=== PATIENT | female | born 1965 | race Caucasian/White ===

== ENCOUNTER 2019-06-27 14:38 | Emergency (ER) | payer BC ==
[2019-06-27] MEDS ORDERED: Ketorolac 30 MG/ML SDV IVPUSH ONE (15:43)
[2019-06-27] MEDS ORDERED: Metoclopramide 10 MG/2 ML SDV IVPUSH ONE (15:43)
[2019-06-27] MEDS ORDERED: Sodium Chloride 0.9% 10 ML Syringe FLUSH PRN (15:43)
[2019-06-27] MEDS ORDERED: diphenhydrAMINE 50 MG/ML SDV IVPUSH ONE (15:43)
[2019-06-27] MEDS ORDERED: Sodium Chloride 0.9% 1,000 ML IV SCH (15:45)
[2019-06-27] MEDS ORDERED: Ondansetron 4 MG/2 ML SDV IVPUSH ONE (15:52)
--- NOTE | 2019-06-27 16:16 | EDM.PDOC ---
ED HPI GENERAL MEDICAL PROBLEM - General Chief Complaint: Headache Stated Complaint: SEVERE MIGRAINE,NAUSEA Time Seen by Provider: 06/27/19 15:42 Source of Information: Reports: Patient, RN Notes Reviewed History Limitations: Reports: No Limitations - History of Present Illness INITIAL COMMENTS - FREE TEXT/NARRATIVE: Patient is a 54-year-old female who presents to the ER for complaints of a headache. Patient notes she has a history of headaches, she states that she has pain in the front of her head, behind her eyes and her temples. This started around 3 hours prior to arrival to the ED. Patient notes that they're from [place] and have been traveling long hours. [place] Drive is [place] [address] She states that she was sleeping in the car so she felt as if her head was bobbing due to tiredness, she thinks this might be related to a sore, stiff neck in nature as well. She states that she then developed a migraine and vomiting. She notes that she's vomited roughly 4 times already. She normally takes an Excedrin for the pain and this helps, but she just wanted to make sure that this was a headache or migraine in nature and not something worse. Patient denies any fevers or chills that she has been having. She is neurologically intact and does not have any sort of neurological deficits noted on initial history. 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: Musculoskeletal History: Reports: None Neurological History: Reports: Migraines Psychiatric History: Reports: None Endocrine/Metabolic History: Reports: Hypothyroidism, Obesity/BMI 30+ Hematologic History: Reports: None Immunologic History: Reports: None Oncologic (Cancer) History: Reports: None Dermatologic History: Reports: None - Infectious Disease History Infectious Disease History: Reports: None - Past Surgical History Head Surgeries/Procedures: Reports: None HEENT Surgical History: Reports: Adenoidectomy, Tonsillectomy Social & Family History - Tobacco Use Smoking Status *Q: Never Smoker - Caffeine Use Caffeine Use: Reports: None - Recreational Drug Use Recreational Drug Use: No ED ROS GENERAL - Review of Systems Review Of Systems: See Below Constitutional: Denies: Fever, Chills HEENT: Reports: No Symptoms Respiratory: Denies: Shortness of Breath Cardiovascular: Denies: Chest Pain Endocrine: Reports: No Symptoms GI/Abdominal: Reports: Nausea, Vomiting. Denies: Constipation, Diarrhea : Reports: No Symptoms Musculoskeletal: Reports: Neck Pain Skin: Reports: No Symptoms Neurological: Reports: Headache (SEE HPI) Psychiatric: Reports: No Symptoms Hematologic/Lymphatic: Reports: No Symptoms - Physical Exam Exam: See Below Exam Limited By: No Limitations General Appearance: Alert, WD/WN, No Apparent Distress Eye Exam: Bilateral Eye: EOMI, Normal Inspection, PERRL Ears: Normal External Exam Throat/Mouth: Normal Inspection, Normal Lips, Normal Teeth, Normal Gums, Normal Oropharynx, Normal Voice, No Airway Compromise Head Exam: Atraumatic, Normocephalic Neck: Normal Inspection, Supple, Non-Tender, Full Range of Motion Respiratory/Chest: No Respiratory Distress, Lungs Clear, Normal Breath Sounds, No Accessory Muscle Use, Chest Non-Tender Cardiovascular: Normal Peripheral Pulses, Regular Rate, Rhythm, No Murmur Neuro Exam (Abbreviated): Alert, Oriented, CN II-XII Intact (grossly), Normal Cognition, Normal Gait, No Motor/Sensory Deficits Extremities: Normal Inspection, Normal Capillary Refill Psychiatric: Normal Affect, Normal Mood Skin Exam: Warm, Dry, Intact, Normal Color, No Rash Course - Vital Signs Last Recorded V/S: Last Vital Signs Temp 95.9 F 06/27/19 14:50 Pulse 72 06/27/19 14:50 Resp 16 06/27/19 14:50 BP 146/90 H 06/27/19 14:50 Pulse Ox 100 06/27/19 14:50 - Orders/Labs/Meds Orders: Active Orders 24 hr Category Date Time Status Peripheral IV Care [RC] . DIRECTED Care 06/27/19 15:44 Active Peripheral IV Insertion Adult [OM.PC] Routine Oth 06/27/19 15:44 Ordered Labs: Laboratory Tests 06/27/19 06/27/19 Range/Units 16:16 16:16 WBC 6.97 (3.98-10.04) K/mm3 RBC 4.46 (3.98-5.22) M/mm3 Hgb 12.2 (11.2-15.7) gm/L Hct 37.7 (34.1-44.9) % MCV 84.5 (79.4-94.8) fl MCH 27.4 (25.6-32.2) pg MCHC 32.4 (32.2-35.5) g/dl RDW Std Deviation 44.2 (36.4-46.3) fL Plt Count 299 (182-369) K/mm3 MPV 9.0 L (9.4-12.3) fl Neut % (Auto) 85.3 H (34.0-71.1) % Lymph % (Auto) 10.8 L (19.3-51.7) % [place] % (Auto) 3.2 L (4.7-12.5) % Eos % (Auto) 0 L (0.7-5.8) Baso % (Auto) 0.3 (0.1-1.2) % Neut # (Auto) 5.95 (1.56-6.13) K/mm3 Lymph # (Auto) 0.75 L (1.18-3.74) K/mm3 [place] # (Auto) 0.22 L (0.24-0.36) K/mm3 Eos # (Auto) 0.00 L (0.04-0.36) K/mm3 Baso # (Auto) 0.02 (0.01-0.08) K/mm3 Manual Slide Review Normal smear Sodium 138 (136-145) mEq/L Potassium 4.9 (3.5-5.1) mEq/L Chloride 106 (98-107) mEq/L Carbon Dioxide 25 (21-32) mEq/L Anion Gap 11.9 (5-15) BUN 13 (7-18) mg/dL Creatinine 0.7 (0.55-1.02) mg/dL Est Cr Clr Drug Dosing 68.52 mL/min Estimated GFR (MDRD) > 60 (>60) mL/min BUN/Creatinine Ratio 18.6 H (14-18) Glucose 108 H (74-106) mg/dL Calcium 9.2 (8.5-10.1) mg/dL Total Bilirubin 0.4 (0.2-1.0) mg/dL AST 21 (15-37) U/L ALT 38 (14-59) U/L Alkaline Phosphatase 69 (46-116) U/L Total Protein 7.8 (6.4-8.2) g/dl Albumin 3.9 (3.4-5.0) g/dl Globulin 3.9 gm/dL Albumin/Globulin Ratio 1.0 (1-2) Meds: Medications Discontinued Medications Generic Name Dose Route Start Last Admin Trade Name Freq PRN Reason Stop Dose Admin Diphenhydramine HCl 25 mg 06/27/19 15:43 06/27/19 16:05 Benadryl IVPUSH 06/27/19 15:44 25 mg ONETIME ONE Administration Sodium Chloride 1,000 mls @ 125 mls/hr 06/27/19 15:45 06/27/19 16:04 Normal Saline IV 125 mls/hr ASDIRECTED CRESENCIO Administration Ketorolac Tromethamine 30 mg 06/27/19 15:43 06/27/19 16:05 Toradol IVPUSH 06/27/19 15:44 30 mg ONETIME ONE Administration Metoclopramide HCl 10 mg 06/27/19 15:43 06/27/19 16:10 Reglan IVPUSH 06/27/19 15:44 Not Given ONETIME ONE Ondansetron HCl 4 mg 06/27/19 15:52 06/27/19 16:06 Zofran IVPUSH 06/27/19 15:53 4 mg ONETIME ONE Administration Sodium Chloride 10 ml 06/27/19 15:43 06/27/19 16:06 Saline Flush FLUSH 10 ml ASDIRECTED PRN Administration Keep Vein Open - Re-Assessments/Exams Free Text/Narrative Re-Assessment/Exam: 06/27/19 16:15 Patient presents to the ED for evaluation of a headache. Did order IV fluids given, 30 mg Toradol, 25 mg Benadryl, and 4 mg Zofran as she does not want to take Reglan. Did also order a CBC and CMP as the patient is worried, that she is going to see her grandchildren and does not want to have any sort of infectious disease. 06/27/19 17:08 Patient was reassessed at bedside, states she states she feels much better. Her labs are within normal limits. We'll discharge her home with general recommendations. Departure - Departure Time of Disposition: 17:09 Disposition: Home, Self-Care 01 Condition: Fair Clinical Impression: Migraine - Discharge Information *PRESCRIPTION DRUG MONITORING PROGRAM REVIEWED*: No *COPY OF PRESCRIPTION DRUG MONITORING REPORT IN PATIENT SIENNA: No Instructions: Migraine Headache, [id number] Referrals: PCP,Not In Area [Primary Care Provider] - Forms: ED Department Discharge Additional Instructions: You were evaluated in the ED today for your headache. You were given and a combination of IV medication that seemed to provide pretty good relief of your headache. Recommend that you go home and rest in a dark quiet room as much as she were able for tonight. Please keep yourself well hydrated. Please return to the ED if your symptoms should change or worsen. - My Orders Last 24 Hours: My Active Orders 06/27/19 15:44 Peripheral IV Care [RC] . DIRECTED Peripheral IV Insertion Adult [OM.PC] Routine - Assessment/Plan Last 24 Hours: My Active Orders 06/27/19 15:44 Peripheral IV Care [RC] . DIRECTED Peripheral IV Insertion Adult [OM.PC] Routine
== END 2019-06-27 17:17 | disposition home or self-care (01) ==
LOC: JD.ED 14:38
DX: G43.909 Migraine, unspecified, not intractable, without status migrainosus (principal); E03.9 Hypothyroidism, unspecified; Z88.8 Allergy status to other drugs, medicaments and biological substances; Z79.899 Other long term (current) drug therapy
CPT/HCPCS: 36415; 80053; 85025; 96361; 96374; 96375; 99284; J1200; J1885; J2405; J7040